=== PATIENT | male | born 1995 | race Caucasian/White ===

== ENCOUNTER 2020-04-08 19:07 | Emergency (ER) | payer OTHER, SELFPAY ==
--- NOTE | ~2020-04-08 | XR_ITS ---
EXAMINATION: XR lumbar spine 2-3V DATE: 04/08/2020 20:25 INDICATION: Low back pain TECHNIQUE: Anteroposterior and lateral views of the lumbar spine, and cone-down lateral view of the l umbosacral junction were obtained. COMPARISON: CT, 01/11/2018 FINDINGS: There is no fracture, dislocation, or subluxation. There is mild chronic loss of interverte bral disc space height at L5-S1. The vertebral body heights are maintained. Cholecystectomy clips are noted. IMPRESSION: 1. Mild lumbar spondylosis without acute findings or significant interval change. Reviewed, dictated and finalized at location A. ER IN IMPRESSION: 1. Mild lumbar spondylosis without acute findings or significant interval drake bautista
[2020-04-08 19:31] VITALS: BP 136/81; PULSE 72; RESP 18; TEMP 36.6; O2SAT 99
--- NOTE | 2020-04-08 20:19 | PC.NURSE ---
Pt off floor to xray.
[2020-04-08] MEDS: CYCLOBENZAPRINE HCL 10 MG TABLET PO (20:29)
[2020-04-08] MEDS: KETOROLAC (*BKC) 60 MG/2 ML VIAL IM (20:30)
[2020-04-08 20:48] LABS: Add Urine Microscopic? YES; Appearance Urine Clear (Clear); Bacteria Urine Trace /hpf; Bilirubin Urine Negative (Negative); Blood Urine Negative (Negative); Color Urine Yellow (Yellow); Glucose Urine UA Negative (Negative); Ketones Urine Negative (Negative); Leukocyte Esterase Ur Negative LEU/UL (Negative); Mucus Urine Heavy /lpf; Nitrate Urine Negative (Negative); Protein Urine 1+ mg/dL (Negative); RBC Urine 0-2 /hpf (0-2); Specific Grav Ur 1.032 (1.001-1.035); Urobilinogen Urine Negative mg/dL (<2.0); WBC Urine 0-3 /hpf
--- NOTE | 2020-04-08 20:58 | ED.LOWEXIN ---
HPI - Extremity Injury (Lower) General Chief Complaint: Extremity Injury, Lower Stated Complaint: back and knee injury Time Seen by Provider: 04/08/20 19:47 Source: patient Mode of arrival: ambulatory Limitations: no limitations History of Present Illness HPI Narrative: Patient is a 24-year-old male who presents complaining of lower back pain and left knee pain. Patient reports he was lifting a 100 pound box of laundry detergent unloading it on a palate when he felt a pop in lower back. He also reports groin pain as well as left knee pain. He denies other injuries. Patient reports injury happened prior to arrival and he did not take any [id number] medications prior to arrival in the ED. MD complaint: other (Back pain) Related Data Home Medications Medication Instructions Recorded Confirmed bupropion HCl mg PO 04/08/20 duloxetine mg PO 04/08/20 Allergies Allergy/AdvReac Type Severity Reaction Status Date / Time No Known Allergies Allergy Verified 04/08/20 19:49 Review of Systems Review of Systems: Narrative: CONSTITUTIONAL: Denies fever, chills, or sweats. EYES: Denies visual changes, redness, or discharge. ENT: Denies rhinorrhea, congestion, sore throat, or otalgia. CARDIOVASCULAR: Denies chest pain, palpitations, or edema. RESPIRATORY: Denies cough or dyspnea. GASTROINTESTINAL: Denies abdominal pain, nausea, vomiting, or diarrhea. GENITOURINARY: Denies dysuria or hematuria. Reports groin pain SKIN: Denies rash or itching. MUSCULOSKELETAL: Reports lower back pain and left knee pain NEUROLOGIC: Denies headache, numbness, dizziness, or weakness. PSYCHIATRIC: Denies anxiety or depression. [facility] Past Medical History Medical History (Updated 04/08/20 @ 21:07 by DALIA Reyna) Anxiety Depression Surgical History Surgical History (Updated 04/08/20 @ 21:04 by DALIA Reyna) Hx of cholecystectomy No significant past surgical history Family History Family History Other No significant family history Social History Social History Gender identity (if verbalized by the patient): Male Comments At the time of signature, I have reviewed and agree with nursing past medical, surgical, social, and family history unless otherwise noted. Please see nursing chart for further information. There is no relevant family history pertinent to the presenting complaint. Exam Narrative: Exam Narrative: GENERAL: Well-appearing, well-nourished, and in no acute distress. HEAD: Normocephalic, atraumatic. EYES: No redness or drainage. ENT: Mucous membranes pink and moist. CHEST: No respiratory distress. Clear to auscultation. HEART: Regular rate and rhythm. GI/: Soft, nontender without rebound, or guarding. No distention. No swelling or distention in the groin, no obvious hernia MUSCULOSKELETAL: Lumbar pain with palpation EXTREMITIES: Normal range of motion. No edema. Distal sensation intact SKIN: Warm, dry, no rash. NEURO: No focal deficits. Alert and oriented x3. Gait steady. PSYCH: Normal affect. No signs of depression or anxiety. Course Vital Signs Vital signs: Vital Signs Temperature 36.6 C 04/08/20 19:31 Pulse Rate 72 04/08/20 19:31 Respiratory Rate 18 04/08/20 19:31 Blood Pressure 136/81 04/08/20 19:31 Pulse Oximetry 99 04/08/20 19:31 Temperature 36.6 C 04/08/20 19:31 Pulse Rate 59 L 04/08/20 22:10 Respiratory Rate 18 04/08/20 22:10 Blood Pressure 127/74 04/08/20 22:10 Pulse Oximetry 100 04/08/20 22:10 Reviewed. Patient has been instructed to follow-up with his PCP regarding his blood pressure. MDM - Extremity Injury (Lower) MDM Narrative Medical decision making narrative: Patient's x-rays show no fracture or acute injury. Discussed with patient most likely cause of pain is musculoskeletal in nature. Discussed pain control. Pat
[2020-04-08] MEDS: HYDROcodone/acetaminophen (*CRX) 5-325 MG TABLET 1 TAB PO (21:16)
[2020-04-08 22:10] VITALS: BP 127/74; PULSE 59; RESP 18; O2SAT 100
== END 2020-04-08 22:12 | disposition home or self-care (01) ==
PROVIDERS: Emergency Provider Nurse Practitioner
DX: S39.92XA Unspecified injury of lower back, initial encounter (principal); M25.562 Pain in left knee; F41.9 Anxiety disorder, unspecified; F32.9 Major depressive disorder, single episode, unspecified; M47.812 Spondylosis without myelopathy or radiculopathy, cervical region; X50.0XXA Overexertion from strenuous movement or load, initial encounter
CPT/HCPCS: 72100; 81001; 96372; 99283; A9270; J1885

== ENCOUNTER 2020-04-09 21:45 | Emergency (ER) | payer OTHER, SELFPAY ==
--- NOTE | ~2020-04-09 | XR_ITS ---
EXAMINATION: XR knee LT 3V DATE: 04/09/2020 22:26 INDICATION: Left knee pain TECHNIQUE: Three views of the left knee were obtained. COMPARISON: None. FINDINGS: Alignment is normal. No fracture or osteochondral lesion. Joint spaces are normal with no e rosions. No joint effusion/synovitis. Soft tissues are unremarkable. IMPRESSION: 1. No acute osseous abnormality. Reviewed, dictated and finalized at location A. ION CUTTER
[2020-04-09 21:48] VITALS: BP 131/83; PULSE 91; RESP 14; TEMP 36.8; O2SAT 96
--- NOTE | 2020-04-09 22:08 | ED.LOWEXIN ---
HPI - Extremity Injury (Lower) General Chief Complaint: Extremity Injury, Lower Stated Complaint: extremity pain, injury yesterday Time Seen by Provider: 04/09/20 21:47 Source: patient Mode of arrival: ambulatory Limitations: no limitations History of Present Illness HPI Narrative: Patient is a 24-year-old male who presents complaining of left knee pain. Patient was seen last night for lower back pain and left knee pain after lifting injury while at work. Patient reports increased pain and tenderness to knee as well as mild swelling. Patient reports pain is 8/10. Patient reports increased pain with ambulation and is requesting crutches. Patient reports injuring knee while lifting a large box of laundry detergent as he twisted and set it down. Related Data Home Medications Medication Instructions Recorded Confirmed bupropion HCl mg PO 04/08/20 duloxetine mg PO 04/08/20 Allergies Allergy/AdvReac Type Severity Reaction Status Date / Time No Known Allergies Allergy Verified 04/08/20 19:49 Review of Systems Review of Systems: Narrative: CONSTITUTIONAL: Denies fever, chills, or sweats. EYES: Denies visual changes, redness, or discharge. ENT: Denies rhinorrhea, congestion, sore throat, or otalgia. CARDIOVASCULAR: Denies chest pain, palpitations, or edema. RESPIRATORY: Denies cough or dyspnea. GASTROINTESTINAL: Denies abdominal pain, nausea, vomiting, or diarrhea. GENITOURINARY: Denies dysuria or hematuria. SKIN: Denies rash or itching. MUSCULOSKELETAL: Left knee pain NEUROLOGIC: Denies headache, numbness, dizziness, or weakness. PSYCHIATRIC: Denies anxiety or depression. PMFSH Past Medical History Medical History Anxiety Depression Surgical History Surgical History Hx of cholecystectomy No significant past surgical history Family History Family History Other No significant family history Social History Social History Gender identity (if verbalized by the patient): Male Exam Narrative: Exam Narrative: GENERAL: Well-appearing, well-nourished, and in no acute distress. HEAD: Normocephalic, atraumatic. EYES: No redness or drainage. ENT: Mucous membranes pink and moist. CHEST: No respiratory distress. HEART: Regular rate and rhythm. EXTREMITIES: Normal range of motion. Mild edema to left knee, medial tenderness with palpation, ecchymosis noted SKIN: Warm, dry, no rash. NEURO: No focal deficits. Alert and oriented x3. Gait steady. PSYCH: Normal affect. No signs of depression or anxiety. Course Vital Signs Vital signs: Vital Signs Temperature 36.8 C 04/09/20 21:48 Pulse Rate 91 04/09/20 21:48 Respiratory Rate 14 04/09/20 21:48 Blood Pressure 131/83 04/09/20 21:48 Pulse Oximetry 96 04/09/20 21:48 Temperature 36.8 C 04/09/20 21:48 Pulse Rate 91 04/09/20 21:48 Respiratory Rate 14 04/09/20 21:48 Blood Pressure 131/83 04/09/20 21:48 Pulse Oximetry 96 04/09/20 21:48 Reviewed. Patient has been instructed to follow-up with his PCP regarding his blood pressure. MDM - Extremity Injury (Lower) MDM Narrative Medical decision making narrative: Patient has musculoskeletal pain to left knee, no acute fracture or dislocation noted on x-ray. Discussed with patient the need to ice and elevate. Crutches given at this time for ambulation. Leon wrap in place for comfort. Discussed with patient taking NSAIDs for pain and swelling. Patient to follow-up with PCP or orthopedics in 3 to 5 days if symptoms persist. Differential Diagnosis Differential diagnosis: Likely acute internal derangement of knee and other (Strain, sprain) Medical Records Attestation: I reviewed the patient's medical records. Imaging Data Radiologist's impression: ITS Impressions
[2020-04-09] MEDS: HYDROcodone/acetaminophen (*CRX) 5-325 MG TABLET 1 TAB PO (22:56)
== END 2020-04-09 23:38 | disposition home or self-care (01) ==
PROVIDERS: Emergency Provider Nurse Practitioner
DX: S86.912A Strain of unspecified muscle(s) and tendon(s) at lower leg level, left leg, initial encounter (principal); F41.9 Anxiety disorder, unspecified; F32.9 Major depressive disorder, single episode, unspecified; X50.0XXA Overexertion from strenuous movement or load, initial encounter
CPT/HCPCS: 73562; 99283; A9270

== ENCOUNTER 2020-12-31 05:23 | Emergency (ER) | payer OTHER, SELFPAY ==
--- NOTE | ~2020-12-31 | XR_ITS ---
EXAMINATION: XR hand RT min 3V EXAM DATE: 12/31/2020 06:27 INDICATION: pain status post punching window, pain in 3rd metacarpal bone. Initial encounter. TECHNIQUE: Right hand frontal, lateral and oblique projections obtained and reviewed. There is no pr ior study for comparison. FINDINGS: Right metacarpal bones are unremarkable. There are no acute fractures or dislocations iden tified. There is no subcutaneous gas. The soft tissue is unremarkable. There are no radiopaque fo reign bodies. IMPRESSION: 1. XR hand RT min 3V exam without acute osseous findings. Reviewed, dictated and finalized at location A.
--- NOTE | 2020-12-31 05:38 | ECG_ITS ---
Measurements Intervals [place] Rate: 73 P: 44 PA: 167 QRS: 62 QRSD: 102 T: 18 QT: 387 QTc: 427 Interpretive Statements SINUS RHYTHM POSSIBLE LEFT ATRIAL ENLARGEMENT BORDERLINE ECG Electronically Signed On 12-31-2020 7:12:11 CDT by Camron Robins D.O.
[2020-12-31 05:40] VITALS: BP 117/82; PULSE 83; RESP 16; TEMP 36.4; O2SAT 97
[2020-12-31 06:04] LABS: Basophils Absolute Auto 0.1 K/mm3 (0.0-0.1); Basophils Percent Auto 0.8 % (0.2-1.2); Eosinophils Absolute Auto 0.1 K/mm3 (0-0.3); Eosinophils Percent Auto 0.9 % (0-4.4); Hematocrit 46.5 % (42.0-52.0); Hemoglobin 16.3 g/dL (14.0-18.0); Immature Granulocyte Absolute 0.02 K/mm3 (0.00-0.031); Immature Granulocyte Percent A 0.2 % (0-0.5); Lymphocytes Absolute Auto 2.59 K/mm3 (0.9-3.2); Lymphocytes Percent Auto 28.7 % (18.3-44.2); Mean Corpuscular HGB Conc 35.1 g/dl (32-36); Mean Corpuscular Hemoglobin 30.8 pg (26-34); Mean Corpuscular Volume 87.7 fl (80-100); Mean Platelet Volume 9.1 fl (7.4-10.4); Monocytes Absolute Auto 0.8 K/mm3 (0.1-0.6); Monocytes Percent Auto 9.1 % (2.6-8.5); Neutrophils Absolute Auto 5.5 K/mm3 (1.3-6.7); Neutrophils Percent Auto 60.3 % (45.5-73.1); Platelet Count Result 303 k/mm3 (150-375); Red Cell Distribution Width 12.1 % (11.5-14.5)
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
[2020-12-31 06:24] LABS: EDCOVIDSCREEN Negative (Negative)
[2020-12-31] MEDS: TETANUS,DIPHTHERIA,AC PERTUSSIS ADULT (0.5 ML) BOOSTRIX IM (06:25)
[2020-12-31 06:27] LABS: Acetaminophen < 10 ug/mL (10-30); Alanine Aminotransferase 27 U/L (4-50); Albumin Level 5.2 g/dL (3.5-5.1); Alkaline Phosphatase 93 U/L (38-126); Anion Gap 12 mmol/L (8-16); Aspartate Amino Transferase 31 U/L (17-59); Bilirubin,Total 0.8 mg/dL (0.2-1.3); Blood Urea Nitrogen 7 mg/dL (9-20); Carbon Dioxide 24 mmol/L (22-30); Chloride 107 mmol/L (98-107); Estimated CRCL calculation 182 ml/min; Estimated Glomerular Filt Rate > 60; Ethanol < 10 mg/dL (<10); Glucose 98 mg/dL (65-110); Salicylate < 1.0 mg/dL (2-20); Sodium 143 mmol/L (137-145)
--- NOTE | 2020-12-31 06:46 | PC.NURSE ---
Pt medically cleared at this time.
[2020-12-31 06:57] LABS: Thyroid Stimulating Hormone 0.683 uIU/mL (0.465-4.680)
[2020-12-31 07:01] LABS: Add Urine Microscopic? YES; Appearance Urine Turbid (Clear); Bacteria Urine 4+ /hpf; Bilirubin Urine Negative (Negative); Blood Urine Negative (Negative); Color Urine Yellow (Yellow); Glucose Urine UA Negative (Negative); Ketones Urine Trace mg/dL (Negative); Leukocyte Esterase Ur Negative LEU/UL (Negative); Mucus Urine Rare /lpf; Nitrate Urine Negative (Negative); Protein Urine 1+ mg/dL (Negative); Specific Grav Ur 1.018 (1.001-1.035); Urobilinogen Urine Negative mg/dL (<2.0); WBC Urine 0-3 /hpf
--- NOTE | 2020-12-31 07:02 | PC.NURSE ---
Pt medically cleared per ERP. This RN contacted Crisis by phone. Crisis requesting to be called back once toxicology is complete (toxicology is pending at this time).
[2020-12-31 07:25] LABS: Barbiturate Screen Urine Negative (Negative); Benzodiazepines Screen Urine Positive (Negative)
--- NOTE | 2020-12-31 07:25 | PC.NURSE ---
Received report from Summer RN no questions or concerns, pt resting quietly at this time
[2020-12-31 07:26] LABS: Amphetamine Screen Urine Negative (Negative); Cannabinoid Screen Urine Positive (Negative); Methadone Screen Urine Negative (Negative); Opiate Screen Urine Negative (Negative); Phencyclidine Screen Urine Negative (Negative)
--- NOTE | 2020-12-31 09:26 | PC.NURSE ---
Pt verified to inform Savita (mother of child) that he is resting and doing fine,
[2020-12-31 12:27] VITALS: BP 116/73; PULSE 81; TEMP 35.7; O2SAT 98
--- NOTE | 2020-12-31 14:11 | PC.NURSE ---
pt resting quietly,
--- NOTE | 2020-12-31 14:36 | PC.NURSE ---
Pt states to call Savita and update her, updated Savita, she let his dogs out as well
--- NOTE | 2020-12-31 17:06 | PC.NURSE ---
pt complains of knee and chest pain doctor informed
[2020-12-31 17:49] VITALS: BP 120/69; PULSE 61; RESP 16; TEMP 36.7; O2SAT 97
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
--- NOTE | 2020-12-31 20:06 | PC.NURSE ---
called minh and stated he has been having these thoughts that he has verbalized to me for the past years, I am glad he is finally getting help.
--- NOTE | 2020-12-31 20:17 | PC.NURSE ---
crisis contacted and will be out to evaluate - davonte will be out shortly
[2020-12-31 23:12] VITALS: BP 129/84; PULSE 70; RESP 18; O2SAT 99
== END 2020-12-31 23:15 | disposition home or self-care (01) ==
PROVIDERS: Emergency Medicine; Emergency Provider Emergency Medicine; PCP Nurse Practitioner Family
DX: F32.A Depression, unspecified (principal); Z20.822 Contact with and (suspected) exposure to COVID-19; F41.9 Anxiety disorder, unspecified; S30.811A Abrasion of abdominal wall, initial encounter; S50.812A Abrasion of left forearm, initial encounter; Z23 Encounter for immunization; X83.8XXA Intentional self-harm by other specified means, initial encounter
CPT/HCPCS: 36415; 73130; 80053; 80307; 81001; 84443; 85025; 87426; 90471; 90715; 93005; 99284; C9803

== ENCOUNTER 2021-09-26 22:51 | Emergency (ER) | payer OTHER, SELFPAY ==
--- NOTE | ~2021-09-26 | XR_ITS ---
EXAMINATION: XR hand RT min 3V DATE: 09/26/2021 23:12 INDICATION: Dog bite with pain to the right second digit TECHNIQUE: Posteroanterior, oblique and lateral views of the right hand were obtained. COMPARISON: 12/31/2020 FINDINGS: Alignment is normal. No fracture. Joint spaces are normal. Unchanged chronic small erosion with thin sclerotic margins at the ulnar base of the fifth proximal phalanx. Small lucencies likely related to soft tissue gas from reported dog bite about the distal aspect of the second metatarsal. No radiopaqu e foreign bodies. IMPRESSION: 1. No acute osseous abnormality or radiopaque foreign body. Reviewed, dictated and finalized at location A.
[2021-09-26 22:55] VITALS: BP 136/66; PULSE 77; RESP 17; TEMP 36.6; O2SAT 99
--- NOTE | 2021-09-26 23:02 | ED.ANIMALBIT ---
HPI - Animal Bite General Chief Complaint: Animal Bite Stated Complaint: dog bite Time Seen by Provider: 09/26/21 23:01 History of Present Illness HPI narrative: 25-year-old male presents emergency room for evaluation of dog bite to his right hand. Patient attempted to break up a dog fight and was bitten his right hand. Patient states dog was a known dog, with all vaccinations are up-to-date. Patient suffered puncture wounds over his second and third fingers. Related Data Allergies Allergy/AdvReac Type Severity Reaction Status Date / Time No Known Allergies Allergy Verified 09/26/21 22:59 Review of Systems Review of Systems: CONSTITUTIONAL: Denies fever, chills, or sweats. EYES: Denies visual changes, redness, or discharge. ENT: Denies rhinorrhea, congestion, sore throat, or otalgia. CARDIOVASCULAR: Denies chest pain, palpitations, or edema. RESPIRATORY: Denies cough or dyspnea. GASTROINTESTINAL: Denies abdominal pain, nausea, vomiting, or diarrhea. GENITOURINARY: Denies dysuria or hematuria. SKIN: Animal bite to right hand MUSCULOSKELETAL: Denies back pain, joint pain, or myalgia. NEUROLOGIC: Denies headache, numbness, dizziness, or weakness. PSYCHIATRIC: Denies anxiety or depression. PMFSH Past Medical History Medical History Anxiety Depression Surgical History Surgical History Hx of cholecystectomy No significant past surgical history Family History Family History Other No significant family history Social History Social History Gender identity (if verbalized by the patient): Male Exam Narrative: GENERAL: Well-appearing, well-nourished, no physical limitations, and in no acute distress. HEAD: Normocephalic, atraumatic. EYES: Conjunctivae normal, PERRLA and EOMI. CHEST: Clear to auscultation. No respiratory distress. No wheezes rales or rhonchi. No tenderness. HEART: Regular rate and rhythm. No murmur heard. Normal peripheral pulses. ABDOMEN: Soft, nontender, nondistended, normal active bowel sounds. : Normal external male/female exam. BACK: No CVA tenderness; No cervical/thoracic/lumbar tenderness, step-offs, bony abnormality; FROM EXTREMITIES: Right hand: Tenderness and swelling to the dorsal surface of the distal second metacarpal, full range of motion, no bony abnormality SKIN: Puncture wound noted to dorsal surfaces of second third digits NEURO: No focal deficits. Alert and oriented x3. MAEW. CN's II-XI intact bilaterally, normal gait PSYCH: Cooperative. Normal mood and affect. Course Vital Signs Vital signs: Vital Signs Temperature 36.6 C 09/26/21 22:55 Pulse Rate 77 09/26/21 22:55 Respiratory Rate 17 09/26/21 22:55 Blood Pressure 136/66 09/26/21 22:55 Pulse Oximetry 99 09/26/21 22:55 Oxygen Delivery Room Air 09/26/21 22:55 Temperature 36.6 C 09/26/21 22:55 Pulse Rate 77 09/26/21 22:55 Respiratory Rate 17 09/26/21 22:55 Blood Pressure 136/66 09/26/21 22:55 Pulse Oximetry 99 09/26/21 22:55 Oxygen Delivery Room Air 09/26/21 22:55 MDM - Animal Bite Imaging Data My impression: No obvious bony abnormality Discharge Plan Discharge Clinical Impression: Bite by animal, Dog bite Patient Disposition: Home, Self-Care Condition: Stable Instructions: Antibiotic Form Prescriptions: New amoxicillin-pot clavulanate 875-125 mg tablet 1 tablet PO Q12H 10 Days Qty: 20 0RF Follow-up/Referrals: Lucrecia,Gill Galaviz APRN [Primary Care Provider] - Time of Disposition: 23:36
[2021-09-27] MEDS: AMOXICILLIN/CLAVULANATE K 875-125 MG TAB 1 TABLET PO (00:05)
== END 2021-09-27 00:08 | disposition home or self-care (01) ==
PROVIDERS: Emergency Provider Nurse Practitioner Family; PCP Nurse Practitioner Family
DX: S61.451A Open bite of right hand, initial encounter (principal); W54.0XXA Bitten by dog, initial encounter
CPT/HCPCS: 73130; 99283; A9270